=== PATIENT | male | born 1945 | race Caucasian/White ===

== ENCOUNTER 2021-09-11 20:54 | Emergency (ER) | payer MEDICARE, OTHER ==
[2021-09-11] MEDS ORDERED: Sodium Chloride 0.9% 10 ML Syringe FLUSH PRN (20:56)
[2021-09-11] MEDS ORDERED: Lidocaine 4% 1 each Patch TOP PRN (21:22)
[2021-09-11] MEDS ORDERED: Diclofenac Sodium 1% Gel 100 GM Tube TOP ONE (21:23)
[2021-09-11 21:37] LABS: ANION GAP 8.7 meq/L (7-15); CHLORIDE,CL 104 mmol/L (98-107); ESTIMATED GFR 61 mL/min (>=60); SODIUM,NA 139 mmol/L (136-145)
== END 2021-09-11 22:15 | disposition home health service (06) ==
LOC: LL.ED 20:54
DX: M70.62 Trochanteric bursitis, left hip (principal); M76.32 Iliotibial band syndrome, left leg; Z88.0 Allergy status to penicillin; Z88.1 Allergy status to other antibiotic agents; Z88.8 Allergy status to other drugs, medicaments and biological substances
CPT/HCPCS: 80053; 81001; 85025; 99283; A9270-GY; J3490

== ENCOUNTER 2021-10-01 20:07 | Emergency (ER) | payer MEDICARE, OTHER ==
[2021-10-01] MEDS ORDERED: Diazepam 5 MG Tab PO ONE (20:30)
[2021-10-01 20:52] LABS: CHLORIDE,CL 106 mmol/L (98-107); SODIUM,NA 140 mmol/L (136-145)
[2021-10-01 20:53] LABS: ESTIMATED GFR 67 mL/min (>=60)
[2021-10-01] MEDS ORDERED: cloNIDine 0.1 MG Tab PO ONE (21:09)
== END 2021-10-01 21:40 ==
LOC: LL.ED 20:07
DX: R25.2 Cramp and spasm (principal); I10 Essential (primary) hypertension; J44.9 Chronic obstructive pulmonary disease, unspecified; E11.9 Type 2 diabetes mellitus without complications; Z88.1 Allergy status to other antibiotic agents; Z88.0 Allergy status to penicillin; Z88.8 Allergy status to other drugs, medicaments and biological substances; Z87.891 Personal history of nicotine dependence
CPT/HCPCS: 36415; 80053; 81001; 83735; 85025; 99283; 99284; A9270-GY

== ENCOUNTER 2021-10-06 20:50 | Emergency (ER) | payer MEDICARE, OTHER ==
[2021-10-06 20:52] VITALS: BP 122/57; PULSE 67
[2021-10-06 21:26] LABS: ANION GAP 8.6 meq/L (7-15); CHLORIDE,CL 104 mmol/L (98-107); ESTIMATED GFR 64 mL/min (>=60); SODIUM,NA 139 mmol/L (136-145)
== END 2021-10-06 22:15 ==
LOC: LL.ED 20:50
DX: M79.89 Other specified soft tissue disorders (principal); E11.9 Type 2 diabetes mellitus without complications; J44.9 Chronic obstructive pulmonary disease, unspecified; E78.00 Pure hypercholesterolemia, unspecified; K21.9 Gastro-esophageal reflux disease without esophagitis; F17.210 Nicotine dependence, cigarettes, uncomplicated; M10.9 Gout, unspecified; Z88.0 Allergy status to penicillin; Z88.1 Allergy status to other antibiotic agents; Z88.8 Allergy status to other drugs, medicaments and biological substances; Z79.82 Long term (current) use of aspirin; Z79.899 Other long term (current) drug therapy
CPT/HCPCS: 36415; 80053; 83605; 83735; 85025; 85379; 99283; 99284